=== PATIENT | female | born 1930 | race Caucasian/White ===

== ENCOUNTER 2017-06-23 07:11 | Day surgery (SDC) | payer MEDICARE, OTHER ==
[2017-06-23 08:44] LABS: ADD MAN DIFF? NO
[2017-06-23 08:46] LABS: BASOPHILS % 0.3 % (0.0-2.0); EOSINOPHILS # 0.1 10^3/ul (0.0-0.5); EOSINOPHILS % 0.7 % (0.0-7.0); HEMATOCRIT 36.3 % (37.0-47.0); HEMOGLOBIN 11.9 g/dl (12.0-16.0); LYMPHOCYTES % 27.3 % (15.0-51.0); MEAN CORPUSCULAR HEMOGLOBIN 29.8 pg (29.0-33.0); MEAN CORPUSCULAR HGB CONC 32.8 g/dl (32.0-37.0); MONOCYTE # 0.5 10^3/ul (0.3-0.9); MONOCYTES % 6.8 % (0.0-11.0); NEUTROPHIL # 4.7 10^3/ul (1.6-7.5); NEUTROPHILS % 64.6 % (39.0-77.0); PLATELET COUNT 354 10^3/UL (140-415); RED BLOOD COUNT 3.99 10^6/ul (4.20-5.40); RED CELL DISTRIBUTION WIDTH 13.3 % (11.5-14.5)
[2017-06-23 08:46] LABS: WHITE BLOOD COUNT 7.3 10^3/ul (4.8-10.8)
[2017-06-23] MEDS ORDERED: LIDOCAINE 1% (MDV) 20 ML INJ (08:58)
[2017-06-23] MEDS ORDERED: IODIXANOL LOCM 100 ML BTL (08:58)
[2017-06-23] MEDS ORDERED: HEPARIN 1000 UNITS/ML 10 ML INJ (08:58)
[2017-06-23] MEDS ORDERED: VERAPAMIL 5 MG INJ (08:58)
[2017-06-23] MEDS ORDERED: NITROGLYCERIN (IC) 100 MCG/ML INJ (08:58)
[2017-06-23] MEDS ORDERED: MIDAZOLAM 1 MG/ML 2 ML INJ (08:59)
[2017-06-23] MEDS ORDERED: FENTAnyl 50 MCG/ML VIAL (08:59)
[2017-06-23 09:19] LABS: INR 0.87; PROTIME 11.9 Sec (11.9-14.9); PT RATIO 0.9
[2017-06-23 09:20] LABS: ANION GAP 18 (8-16); CARBON DIOXIDE 24 mmol/L (21-31); CHLORIDE 96 mmol/L (97-110); CHOL/HDL RATIO 3.4 RATIO; CHOLESTEROL 171 mg/dl (100-200); GLUCOSE 117 mg/dl (70-220); HDL CHOLESTEROL 50 mg/dl (33-92); LDL CHOLESTEROL,CALCULATED 93 mg/dl; PARTIAL THROMBOPLASTIN TIME 25.8 Sec (25.0-35.0); TRIGLYCERIDES 142 mg/dl (0-149)
[2017-06-23 09:32] LABS: BLOOD UREA NITROGEN 18 mg/dl (7-20); CALCIUM 8.6 mg/dl (8.4-10.2); CREATININE 0.65 mg/dl (0.44-1.00); POTASSIUM 4.6 mmol/L (3.5-5.1); SODIUM 133 mmol/L (135-144)
[2017-06-23] MEDS ORDERED: SOD CHLORIDE 0.9% 1,000 ML IV (10:37)
[2017-06-23] MEDS ORDERED: morphine 2 MG INJ IV (11:00)
[2017-06-23] MEDS ORDERED: ACETAMINOPHEN 325 MG TAB PO (11:00)
[2017-06-23] MEDS ORDERED: ONDANSETRON 4 MG INJ IV (11:00)
[2017-06-23] MEDS ORDERED: AL HYDROX/MG HYDROX/SIMETH 30 ML CUP PO (11:00)
== END 2017-06-23 13:54 | disposition home or self-care (01) ==
LOC: SDS 07:11
DX: I25.10 Atherosclerotic heart disease of native coronary artery without angina pectoris (principal); I10 Essential (primary) hypertension; E78.5 Hyperlipidemia, unspecified; E11.9 Type 2 diabetes mellitus without complications
CPT/HCPCS: 71045; 80048; 80061; 82962; 85025; 85610; 85730; 93005; 93458